=== PATIENT | female | born 1950 | race Caucasian/White ===

== ENCOUNTER → 2020-02-18 | Outpatient (CLI) | payer MEDICARE, OTHER, SELFPAY ==
--- NOTE | 2020-02-18 | LES_PTH ---
PATIENT: ROLA GALINDO [id number] AGE/SX: 69/F ROOM: RE02/18/[address]: Dr. Miller Singh MD : 1950 BED: DIS: 02/18/2020 SPEC #: [id number] RECD: 02/18/20 12:09 STATUS: ARTEMIO EDI #: [id number] URIAH: 02/18/20 00:[address]: Miller Singh DEPT: SURGICAL PATHOLOGY RECD BY: Yesika Peguero Tissues: Skin of external ear, NOS Procedures: Surgery Specimen Level IV HEADER OPERATION: Excisional biopsy PRE-OP DIAGNOSIS: Cellulitis of right external ear TISSUE SUBMITTED: Lesion right ear MICROSCOPIC DIAGNOSIS Lesion right ear, excisional biopsy: Basal cell carcinoma, nodular type (0.6 cm in greatest dimension), completely excised. Mild actinic keratosis and solar elastosis. SJ:moises 02/19/20 COMMENT Case has been reviewed in consultation with Dr. Bradshaw who concurs with the above diagnosis. IDC:AM MICROSCOPIC DESCRIPTION Slides are reviewed. GROSS DESCRIPTION Received in fixative is one container labeled with the patient's name and designated lesion right ear. The specimen consists of an ellipse of light cheng excised skin measuring 1.5 x 0.7 x 0.3 cm. The specimen is inked, serially sectioned and totally submitted in one cassette. / AM:moises 02/18/20 TC:0 CPT: 82452
== END | disposition home or self-care (01) ==
LOC: LABSPEC 13:26
PROVIDERS: Referring Provider Otolaryngology; Visit Provider Otolaryngology
DX: H60.11 Cellulitis of right external ear (principal)
CPT/HCPCS: 88305